=== PATIENT | female | born 1985 | race Caucasian/White ===

== ENCOUNTER 2017-08-15 18:58 | Emergency (ER) | payer OTHER ==
[2017-08-15 19:08] VITALS: BP 139/118
--- NOTE | 2017-08-15 19:17 | EDPHY ---
HPI/HX/ROS/PE/MDM Narrative: CHIEF COMPLAINT: Back pain, left arm numbness HPI: The patient is a 31 y/o female with a history of polycystic kidney disease complaining of upper back pain and left arm tingling secondary to catching a person at work onset 1 hour ago. The person at work was walking up some stairs when she began to fall, so our patient began to catch her. However, while catching her she tweaked her upper back. Around 45 minutes ago, she began to notice left arm tingling and numbness. Denies history of back surgeries. Denies chest pain, shortness of breath, abdominal pain, urinary or bowel complaints, fever. She denies direct back trauma. REVIEW OF SYSTEMS: Aside from elements discussed in the HPI, a comprehensive 10-point review of systems was reviewed and is negative. PMH: Polycystic kidney disease, intracranial hypertension, asthma, PCOS, sinus surgery, biopolar SOCIAL HISTORY: Employed as a [employer], single, lives in [place] PHYSICAL EXAM: General: Patient is alert, in no acute distress. ENT: Eyes are normal to inspection. ENT inspection normal. Neck: Normal inspection. Full range of motion. Respiratory: No respiratory distress. Breath sounds normal bilaterally. Cardiovascular: Regular rate and rhythm. Strong peripheral pulses. Normal cap refill. Abdomen: The abdomen is nontender to palpation. There are no peritoneal signs. There are normal bowel sounds. Back: Tenderness in upper thoracic spine. Normal to inspection. Skin: Normal color. No rash. Warm and dry. Extremities: Normal appearance. Full range of motion. Neuro: Oriented x3. Normal motor function. Normal sensory function. No pronator drift. 5/5 strength BUEs. Normal gait. ED Course: 192: I discussed NSAID use as the patient has polycystic kidney disease. Patient is comfortable with taking Flexeril and Toradol. I have advised her to follow up with workman's comp as patient's injury occurred at work. Return precautions provided; patient is comfortable with this plan. MDM: This patient presents with signs and symptoms of a thoracic back strain. I see no evidence of spinal cord injury or fracture, and I do not think emergent imaging is indicated. General Time Seen by Provider: 08/15/17 19:17 Initial Vital Signs: Initial Vital Signs Temperature (C) 36.7 C 08/15/17 19:05 Heart Rate 113 H 08/15/17 19:05 Respiratory Rate 18 08/15/17 19:05 Blood Pressure 139/118 H 08/15/17 19:05 O2 Sat (%) 99 08/15/17 19:05 O2 Delivery Mode Room Air Allergies/Adverse Reactions: No Known Allergies Allergy (Verified 08/15/17 19:04) Home Medications: Medication Instructions Recorded Cyclobenzaprine [Flexeril 10 MG 10 mg PO TID PRN #15 tab 08/15/17 (*)] Ketorolac Tromethamine 10 mg PO Q6H PRN #7 tab 08/15/17 Nexplanon 08/15/17 Departure - Departure Disposition: Home, Routine, Self-Care Clinical Impression: Acute thoracic back pain Condition: Good Instructions: Back Pain (ED) Additional Instructions: Followup with your workman's comp. Take Toradol and Flexeril as prescribed. Return to the emergency department for severe pain, fever, numbness, difficulty walking, change in location or nature of pain or other concerns. Try using a heating pad. Referrals: Work Comp Referral [facility] [Outside] - As per Instructions Prescriptions: Cyclobenzaprine [Flexeril 10 MG (*)] 10 mg PO TID PRN #15 tab PRN Reason: Spasms Ketorolac Tromethamine 10 mg PO Q6H PRN #7 tab PRN Reason: Pain/inflammation Report Scribed for: Cyrus Low Report Scribed by: Sho Connolly Date of Report: 08/15/17 Time of Report: 19:17 Physician Review and Approval Statement: Portions of this note were transcribed by an ED scribe. I personally performed the history, physical exam, and medical decision making; and confirm the accuracy of the information in the transcribed note.
== END 2017-08-15 19:31 | disposition home or self-care (01) ==
DX: M54.6 Pain in thoracic spine (principal); J45.909 Unspecified asthma, uncomplicated